=== PATIENT | female | born 1985 | race Caucasian/White ===

== ENCOUNTER 2019-02-04 08:55 | Emergency (ER) | payer SELFPAY ==
[~2019-02-04] VITALS: Ht 172.7 cm; Wt 68.0 kg
[2019-02-04 09:00] VITALS: BP 125/67
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
--- NOTE | 2019-02-04 09:57 | RAD ---
ANKLE LEFT 3V History: Injury to Achilles. Pain. Swelling. Technique: 3 views of the ankle. Comparison: None. Findings: Normal alignment. Symmetric ankle mortise. No fracture. Impression: 1. No acute osseous abnormality. Electronically signed by: Vance Sinha DO (02/04/2019 9:54 AM) [facility]
== END 2019-02-04 10:23 | disposition home or self-care (01) ==
LOC: ER 08:55
DX: M79.672 Pain in left foot (principal); V09.9XXA Pedestrian injured in unspecified transport accident, initial encounter; Y93.89 Activity, other specified; Y92.89 Other specified places as the place of occurrence of the external cause; Y99.0 Civilian activity done for income or pay
CPT/HCPCS: 73610; 99284

== ENCOUNTER 2019-04-04 07:47 | Emergency (ER) | payer SELFPAY ==
[~2019-04-04] VITALS: Ht 172.7 cm; Wt 68.0 kg
[2019-04-04 07:50] VITALS: BP 136/75
[2019-04-04] MEDS ORDERED: ALBU2.5V8 IH (08:08)
[2019-04-04] MEDS ORDERED: AZIT250T6 PO (08:08)
[2019-04-04] MEDS ORDERED: PRED20TA PO (08:08)
--- NOTE | 2019-04-04 08:08 | PHYS DOC ---
Past History Past Medical History: Anxiety Past Surgical History: Other Additional Past Surgical Histo: D&C Smoking: Non-smoker Alcohol Use: Occasionally Drug Use: Marijuana Adult General Chief Complaint Chief Complaint: SHORTNESS OF BREATH HPI HPI 33-year-old female presents with one-week history of URI-type symptoms. Reports last night she had sensation she was unable to breathe with some wheezing. Reports nonproductive cough. Reports subjective fever and chills. Reports nasal congestion. Reports positive sick contacts. Denies . Review of Systems Review of Systems Constitutional: Reports subjective fever and chills Eyes: Denies redness or eye pain HENT: Reports nasal congestion and sore throat Respiratory: Reports nonproductive cough and wheezing Cardiovascular: Denies chest pain or palpitations GI: Denies abdominal pain, nausea, or vomiting : Denies dysuria or hematuria Musculoskeletal: Denies back pain or joint pain Integument: Denies rash or skin lesions Neurologic: Denies headache, focal weakness or sensory changes Complete systems were reviewed and found to be within normal limits, except as documented in this note. Allergies Allergies Allergies Coded Allergies Type Severity Reaction Last Updated Verified No Known Drug Allergies 04/04/19 No Physical Exam Physical Exam Constitutional: Well developed, well nourished, ill appearing, non-toxic appearance HENT: Normocephalic, atraumatic, oropharynx moist, pharynx without erythema or tonsillar exudate, nasal congestion noted Eyes: Conjunctiva normal, no discharge Neck: Normal range of motion, no tenderness, supple Cardiovascular: Heart rate normal, regular rhythm Lungs & Thorax: Bilateral breath sounds diminished at bases but otherwise clear to auscultation, no wheezing Skin: Warm, dry, no erythema, no rash Extremities: No tenderness, ROM intact, no edema Neurologic: Alert and oriented X 3, no focal deficits noted Psychologic: Affect normal, judgement normal, mood normal Current Patient Data Vital Signs Vital Signs Date Time Temp Pulse Resp B/P (MAP) Pulse Ox O2 Delivery O2 Flow Rate FiO2 04/04/19 07:47 98.6 105 22 136/75 (95) 98 Room Air EKG EKG [] Radiology/Procedures Radiology/Procedures PROCEDURE: CHEST PA & LATERAL Chest radiograph 04/04/2019 8:02 AM INDICATION: Cough COMPARISON: None available TECHNIQUE: Frontal and lateral views of the chest are provided. FINDINGS: The cardiomediastinal silhouette is within normal limits. There are no pleural effusions. There is no pulmonary vascular congestion. There is no pneumothorax. The lungs are clear. No significant osseous abnormality is identified. IMPRESSION: No acute cardiopulmonary process. Electronically signed by: Clau Apple MD (04/04/2019 8:35 AM) [facility] Course & Med Decision Making Course & Med Decision Making Pertinent Imaging studies reviewed. (See chart for details) Patient presents with history of present illness and physical exam consistent for acute bronchitis. Symptomatic treatment provided with oral steroid. Chest x- ray without acute process. Patient stable for discharge with outpatient follow- up with PCP. Discussed findings and plan with patient and friend, who acknowledge understanding and agreement. Dragon Disclaimer Dragon Disclaimer This electronic medical record was generated, in whole or in part, using a voice recognition dictation system. Departure Departure: Impression: Primary Impression: Acute bronchitis Disposition: HOME, SELF-CARE Condition: STABLE Referrals: PCP,NO (PCP) Patient Instructions: Acute Bronchitis, [id number] Additional Instructions: Hold antibiotics for 48 hours. If symptoms worsen or for fever > 100.3 F after 48 hours then start antibiotics as prescribed. Scripts Azithromycin (AZITHROMYCIN TABLET) 250 Mg Tablet 1 PKG PO UD for bronchitis, #6 TAB Take 2 tablets today and then one tablet every day thereafter for the next 4 days Prov: LEE GHOSH DO 04/04/19 Albuterol Sulfate (PROAIR HFA INHALER) 8.5 Gm Hfa.aer.ad 2 PUFF IH PRN Q4-6HRS PRN for wheezing, #1 INHALER 0 Refills Prov: LEE GHOSH DO 04/04/19 Prednisone (PREDNISONE) 20 Mg Tablet 2 TAB PO DAILY for Bronchitis, #8 TAB Start this prescription tomorrow, Saturday04/05/19 Prov: LEE GHOSH DO 04/04/19 Problem Qualifiers Primary Impression: Acute bronchitis Bronchitis organism: unspecified organism Qualified Codes: J20.9 - Acute bronchitis, unspecified LEE GHOSH DO Apr 04, 2019 08:08
[2019-04-04] MEDS ORDERED: DEXAMETHASONE 4 MG TABLET PO ONE (08:15)
--- NOTE | 2019-04-04 08:38 | RAD ---
Chest radiograph 04/04/2019 8:02 AM INDICATION: Cough COMPARISON: None available TECHNIQUE: Frontal and lateral views of the chest are provided. FINDINGS: The cardiomediastinal silhouette is within normal limits. There are no pleural effusions. There is no pulmonary vascular congestion. There is no pneumothorax. The lungs are clear. No significant osseous abnormality is identified. IMPRESSION: No acute cardiopulmonary process. Electronically signed by: Clau Apple MD (04/04/2019 8:35 AM) [facility]
== END 2019-04-04 08:50 | disposition home or self-care (01) ==
LOC: ER 07:47
DX: J20.9 Acute bronchitis, unspecified (principal); F41.9 Anxiety disorder, unspecified
CPT/HCPCS: 71046; 99284; J8540

== ENCOUNTER → 2019-06-30 | Outpatient (CLI) | payer BC ==
[~2019-06-30] MED LIST: ALBU2.5V8 IH; AZIT250T6 PO; PRED20TA PO
[2019-06-30 14:52] LABS: HEMATOCRIT 22.9 % (36.0-47.0)
[2019-06-30 14:54] LABS: HEMOGLOBIN 6.7 g/dL (12.0-15.5)
[2019-06-30 16:06] VITALS: BP 97/48
[2019-06-30 17:12] VITALS: BP 100/53
--- NOTE | 2019-06-30 17:17 | NUR ---
Blood transfusion started at 1638, Tubing primed with Normal Saline and then primed with blood, tranfusion started at 20ml/hr, patient monitor closely x 15 min. Pt felt light-headed, BP 100/53, Temp-97.3, O2 sat-100%, RR-20, heart rate-77. Tranfusion rate increased to 120 mL/hr. Will continue to monitor and assess as necessary, pt instructed to call for any assistance.
[2019-06-30 18:15] VITALS: BP 103/55
[2019-06-30 19:20] VITALS: BP 108/56
[2019-06-30 20:20] VITALS: BP 103/52
[2019-06-30 20:42] LABS: HEMATOCRIT 24.1 % (36.0-47.0); HEMOGLOBIN 7.3 g/dL (12.0-15.5)
== END | disposition home or self-care (01) ==
LOC: OPINF 14:03
PROVIDERS: ATTEND Nurse Practitioner
DX: D64.9 Anemia, unspecified (principal); R00.2 Palpitations
CPT/HCPCS: 36415; 36430; 82607; 82728; 82746; 83540; 83550; 85014; 85018; 85045; 86850; 86900; 86901; 86920; P9016

== ENCOUNTER → 2019-06-30 | Outpatient (CLI) | payer BC ==
[2019-06-30 09:47] LABS: BASO # 0.1 x10^3/uL (0.0-0.2); BASO % 1 % (0-3); EOS # 0.1 x10^3/uL (0.0-0.7); EOS % 2 % (0-3); HEMATOCRIT 22.2 % (36.0-47.0); LYMPH # 1.3 x10^3/uL (1.0-4.8); LYMPH % 28 % (24-48); MEAN CORPUSCULAR HEMOGLOBIN 19 pg (25-35); MEAN CORPUSCULAR HGB CONC 29 g/dL (31-37); MEAN CORPUSCULAR VOLUME 66 fL (79-100); MONO # 0.3 x10^3/uL (0.0-1.1); MONO % 6 % (0-9); NEUT # 2.9 x10^3uL (1.8-7.7); NEUT % 63 % (31-73); PLATELET COUNT 359 x10^3/uL (140-400); RED BLOOD COUNT 3.35 x10^6/uL (3.50-5.40); RED CELL DISTRIBUTION WIDTH 19.4 % (11.5-14.5); WHITE BLOOD COUNT 4.6 x10^3/uL (4.0-11.0)
[2019-06-30 10:00] LABS: ALBUMIN 3.9 g/dL (3.4-5.0); ALBUMIN/GLOBULIN RATIO 1.1 (1.0-1.7); CALCIUM 8.6 mg/dL (8.5-10.1); CREATININE 0.5 mg/dL (0.6-1.0); POTASSIUM 3.9 mmol/L (3.5-5.1); TOTAL BILIRUBIN 0.1 mg/dL (0.2-1.0); TOTAL PROTEIN 7.6 g/dL (6.4-8.2)
[2019-06-30 11:08] LABS: HEMOGLOBIN 6.4 g/dL (12.0-15.5)
[2019-06-30 13:49] LABS: HYPOCHROMIA MOD; PLT ESTIMATE ADEQUATE (ADEQUATE)
[2019-06-30 13:50] LABS: MICROCYTOSIS PRESENT
[2019-06-30 13:51] LABS: ANISOCYTOSIS PRESENT; OVALOCYTES FEW
[2019-06-30 13:52] LABS: TARGET CELLS FEW; TEAR DROP CELLS FEW
== END | disposition home or self-care (01) ==
LOC: LAB 08:37
PROVIDERS: ATTEND Internal Medicine Cardiovascular Disease
DX: R00.2 Palpitations (principal); D64.9 Anemia, unspecified
CPT/HCPCS: 36415; 80053; 83735; 84443; 85025

== ENCOUNTER → 2019-07-07 | Outpatient (CLI) | payer BC ==
[~2019-07-07] MED LIST changes: +FERRIC CARBOXYMALTOSE 750 MG in IV NORMAL SALINE 250ML 250 ML IV ONE
[2019-07-07 09:34] VITALS: BP 109/65
--- NOTE | 2019-07-07 10:34 | NUR ---
Patient arrived on unit for outpatient infusion of Injectefer. Vitals were assessed and stable upon assessment. IV 22g RAC put in upon arrival. IV Injectefer was administered per order. IV d/c upon completion of IV injectefer. Patient left unit independently after IV Injectefer completed.
== END | disposition home or self-care (01) ==
LOC: OPINF 09:18
PROVIDERS: ATTEND Nurse Practitioner
DX: D50.9 Iron deficiency anemia, unspecified (principal); R00.2 Palpitations
CPT/HCPCS: 36592; 96365; J1439; J7050

== ENCOUNTER → 2019-07-24 | Outpatient (CLI) | payer BC ==
[2019-07-24 09:22] VITALS: BP 106/61
--- NOTE | 2019-07-24 10:11 | NUR ---
Pt ambulated independently to room 125. Peripheral Iv started in R AC flushed. IV infusion started at 530 ml/hr. Pt offered extra pillow and warm blanket. Vital Signs stable upon arrival.
--- NOTE | 2019-07-24 10:35 | NUR ---
Pt ambulated off unit independently. peripheral Iv disconnected and discontinued.
== END | disposition home or self-care (01) ==
LOC: OPINF 09:09
PROVIDERS: ATTEND Nurse Practitioner
DX: D50.9 Iron deficiency anemia, unspecified (principal)
CPT/HCPCS: 96365; J1439; J7050

== ENCOUNTER 2019-11-18 14:01 | Emergency (ER) | payer BC ==
[~2019-11-18] VITALS: Ht 172.7 cm; Wt 69.0 kg
[~2019-11-18 14:01] MED LIST changes: -FERRIC CARBOXYMALTOSE 750 MG in IV NORMAL SALINE 250ML 250 ML IV ONE
[2019-11-18] MEDS ORDERED: IV NORMAL SALINE 1,000ML 1,000 ML IV ONE (14:30)
[2019-11-18] MEDS ORDERED: ASPIRIN 325 MG TABLET ONE (14:51)
[2019-11-18] MEDS ORDERED: ASPIRIN 325 MG TABLET PO ONE (15:00)
[2019-11-18 15:03] LABS: BASO # 0.1 x10^3/uL (0.0-0.2); BASO % 1 % (0-3); EOS # 0.1 x10^3/uL (0.0-0.7); EOS % 2 % (0-3); HEMATOCRIT 39.9 % (36.0-47.0); HEMOGLOBIN 13.1 g/dL (12.0-15.5); LYMPH # 1.8 x10^3/uL (1.0-4.8); LYMPH % 29 % (24-48); MEAN CORPUSCULAR HEMOGLOBIN 30 pg (25-35); MEAN CORPUSCULAR HGB CONC 33 g/dL (31-37); MEAN CORPUSCULAR VOLUME 90 fL (79-100); MONO # 0.3 x10^3/uL (0.0-1.1); MONO % 6 % (0-9); NEUT # 3.7 x10^3uL (1.8-7.7); NEUT % 62 % (31-73); PLATELET COUNT 258 x10^3/uL (140-400); RED BLOOD COUNT 4.42 x10^6/uL (3.50-5.40); RED CELL DISTRIBUTION WIDTH 13.2 % (11.5-14.5)
[2019-11-18 15:17] LABS: ANION GAP 7 (6-14); BLOOD UREA NITROGEN 15 mg/dL (7-20); BUN/CREATININE RATIO 17 (6-20); CALCIUM 8.7 mg/dL (8.5-10.1); CARBON DIOXIDE 27 mmol/L (21-32); CHLORIDE 107 mmol/L (98-107); CREATININE 0.9 mg/dL (0.6-1.0); GFR 72.6; GLUCOSE 105 mg/dL (70-99); POTASSIUM 3.7 mmol/L (3.5-5.1); SODIUM 141 mmol/L (136-145)
--- NOTE | 2019-11-18 15:21 | PHYS DOC ---
Past History Past Medical History: Other Additional Past Medical Histor: CARDIOMYPATHY Past Surgical History: No Surgical History Additional Past Surgical Histo: D&C Smoking: Non-smoker Alcohol Use: None Drug Use: Marijuana General Adult EDM: Chief Complaint: CHEST PAIN HPI: HPI: Patient is a [age] year old [sex] who presents with [] Review of Systems: Review of Systems: Constitutional: Denies fever or chills Eyes: Denies redness or eye pain HENT: Denies nasal congestion or sore throat Respiratory: Denies cough or shortness of breath Cardiovascular: Denies chest pain or palpitations GI: Denies abdominal pain, nausea, or vomiting : Denies dysuria or hematuria Musculoskeletal: Denies back pain or joint pain Integument: Denies rash or skin lesions Neurologic: Denies headache, focal weakness or sensory changes Complete systems were reviewed and found to be within normal limits, except as documented in this note. Heart Score: HEART Score for Chest Pain: HEART Score for Chest Pain Response (Comments) Value History Slighlty/Non-Suspicious 0 ECG Normal 0 Age < 45 0 Risk Factors 1 or 2 Risk Factors 1 Troponin < Normal Limit 0 Total 1 Risk Factors: Risk Factors: DM, Current or recent (<one month) smoker, HTN, HLP, family history of CAD, obesity. Risk Scores: Score 0 - 3: 2.5% MACE over next 6 weeks - Discharge Home Score 4 - 6: 20.3% MACE over next 6 weeks - Admit for Clinical Observation Score 7 - 10: 72.7% MACE over next 6 weeks - Early Invasive Strategies Current Medications: Current Meds: Current Medications Medications (Trade) Dose Ordered Sig/[facility] Start Time Stop Time Status Last Admin Dose Admin Aspirin (Garret Aspirin) 325 mg STK-MED ONCE 11/18/19 14:51 11/18/19 14:51 DC Sodium Chloride 1,000 ml @ 1,000 mls/hr 1X ONCE 11/18/19 14:30 11/18/19 15:29 11/18/19 14:53 1,000 MLS/HR Allergies: Allergies: Allergies Coded Allergies Type Severity Reaction Last Updated Verified No Known Drug Allergies 04/04/19 No Physical Exam: PE: Constitutional: Well developed, well nourished, no acute distress, non-toxic appearance HENT: Normocephalic, atraumatic, oropharynx moist Eyes: PERRL, EOMI, conjunctiva normal, no discharge Neck: Normal range of motion, no tenderness, supple Cardiovascular: Heart rate normal, regular rhythm Lungs & Thorax: Bilateral breath sounds clear to auscultation, no wheezing Abdomen: Soft, no tenderness Skin: Warm, dry, no erythema, no rash Back: No tenderness, no CVA tenderness Extremities: No tenderness, ROM intact, no edema Neurologic: Alert and oriented X 3, normal motor function, normal sensory function, no focal deficits noted Psychologic: Affect normal, judgment normal Current Patient Data: Labs: Laboratory Tests Test 11/18/19 14:44 11/18/19 15:06 White Blood Count 6.0 x10^3/uL (4.0-11.0) Red Blood Count 4.42 x10^6/uL (3.50-5.40) Hemoglobin 13.1 g/dL (12.0-15.5) Hematocrit 39.9 % (36.0-47.0) Mean Corpuscular Volume 90 fL (79-100) Mean Corpuscular Hemoglobin 30 pg (25-35) Mean Corpuscular Hemoglobin Concent 33 g/dL (31-37) Red Cell Distribution Width 13.2 % (11.5-14.5) Platelet Count 258 x10^3/uL (140-400) Neutrophils (%) (Auto) 62 % (31-73) Lymphocytes (%) (Auto) 29 % (24-48) Monocytes (%) (Auto) 6 % (0-9) Eosinophils (%) (Auto) 2 % (0-3) Basophils (%) (Auto) 1 % (0-3) Neutrophils # (Auto) 3.7 x10^3uL (1.8-7.7) Lymphocytes # (Auto) 1.8 x10^3/uL (1.0-4.8) Monocytes # (Auto) 0.3 x10^3/uL (0.0-1.1) Eosinophils # (Auto) 0.1 x10^3/uL (0.0-0.7) Basophils # (Auto) 0.1 x10^3/uL (0.0-0.2) Sodium Level 141 mmol/L (136-145) Potassium Level 3.7 mmol/L (3.5-5.1) Chloride Level 107 mmol/L (98-107) Carbon Dioxide Level 27 mmol/L (21-32) Anion Gap 7 (6-14) Blood Urea Nitrogen 15 mg/dL (7-20) Creatinine 0.9 mg/dL (0.6-1.0) Estimated GFR (Cockcroft-Gault) 72.6 BUN/Creatinine Ratio 17 (6-20) Glucose Level 105 mg/dL (70-99) H Calcium Level 8.7 mg/dL (8.5-10.1) Magnesium Level Pending Total Bilirubin Pending Aspartate Amino Transferase (AST) Pending Alanine Aminotransferase (ALT) Pending Alkaline Phosphatase Pending Creatine Kinase Pending Creatine Kinase MB (Mass) Pending Creatine Kinase MB Relative Index Pending MW-Uvc-B-Type Natriuretic Peptide Pending Total Protein Pending Albumin Pending Albumin/Globulin Ratio Pending Lipase Pending POC Urine HCG, Qualitative hcg negative (Negative) Vital Signs: Vital Signs Date Time Temp Pulse Resp B/P (MAP) Pulse Ox O2 Delivery O2 Flow Rate FiO2 11/18/19 14:40 98.9 78 18 119/66 (83) 98 Room Air EKG: EKG: @1408 NSR at 70bpm, NO ST elevation, QRS 78ms, QT/QTc 380/413ms, nonspecific t wave inversion aVL, Q wave in II,III, aVF Radiology/Procedures: Radiology/Procedures: PROCEDURE: CHEST PA & LATERAL EXAM: PA and Lateral Views of the Chest DATE: 11/18/2019 4:04 PM INDICATION: Chest pain COMPARISON: 04/04/2019 FINDINGS: The heart is not enlarged. Mediastinal and hilar contours are normal. No focal parenchymal airspace opacity. No pleural effusion or pneumothorax. IMPRESSION: 1. No radiographic evidence for acute cardiopulmonary process. Electronically signed by: Sarabjit Cabrera MD (11/18/2019 4:16 PM) [facility] Course & Med Decision Making: Course & Med Decision Making Pertinent Labs and Imaging studies reviewed. (See chart for details) Patient stable for discharge with outpatient follow-up with PCP. Discussed f indings and plan with patient, who acknowledges understanding and agreement. Gladis Disclaimer: Gladis Disclaimer: This electronic medical record was generated, in whole or in part, using a voice recognition dictation system. Departure Departure: Impression: Primary Impression: Chest pain Qualified Codes: R07.9 - Chest pain, unspecified Disposition: HOME/RESIDENCE PRIOR TO ADM Condition: STABLE Referrals: PCP,BARRY (PCP) TAYLER PAYAN MD Patient Instructions: Chest Pain (Nonspecific), [id number] Justification of Admission: Justification of Admission: Justification of Admission Dx: N/A LEE GHOSH DO Nov 18, 2019 15:21
[2019-11-18 15:23] LABS: BARBITURATES NEG (NEG); BENZODIAZEPINES NEG (NEG); CANNABINOIDS POS (NEG); COCAINE NEG (NEG); METHADONE NEG (NEG); OPIATES NEG (NEG); PHENCYCLIDINE NEG (NEG)
[2019-11-18 15:28] LABS: AMPHETAMINE/METHAMPHETAMINE NEG (NEG)
[2019-11-18 15:32] LABS: ALBUMIN 3.7 g/dL (3.4-5.0); ALK PHOS 45 U/L (46-116); ALT (SGPT) 17 U/L (14-59); AST (SGOT) 10 U/L (15-37); LIPASE 120 U/L (73-393); MAGNESIUM 2.3 mg/dL (1.8-2.4); TOTAL BILIRUBIN 0.3 mg/dL (0.2-1.0); TOTAL PROTEIN 7.3 g/dL (6.4-8.2)
[2019-11-18 15:40] LABS: BACTERIA,URINE 0 /HPF (0-FEW); BILIRUBIN,URINE NEG (NEG); CLARITY,URINE CLEAR; COLOR,URINE YELLOW; GLUCOSE,URINE NEG (NEG); NITRITE,URINE NEG (NEG); SQUAMOUS EPITHELIAL CELL,UR FEW /LPF; UROBILINOGEN,URINE 0.2 mg/dL (0.2 mg/dL)
--- NOTE | 2019-11-18 16:19 | RAD ---
EXAM: PA and Lateral Views of the Chest DATE: 11/18/2019 4:04 PM INDICATION: Chest pain COMPARISON: 04/04/2019 FINDINGS: The heart is not enlarged. Mediastinal and hilar contours are normal. No focal parenchymal airspace opacity. No pleural effusion or pneumothorax. IMPRESSION: 1. No radiographic evidence for acute cardiopulmonary process. Electronically signed by: Sarabjit Cabrera MD (11/18/2019 4:16 PM) [facility]
[2019-11-18 16:30] VITALS: BP 117/93
--- NOTE | 2019-11-19 13:48 | EKG ---
[address] [address] Test Date: 2019-11-18 Test Time: 14:08:05 Pat Name: WILLIE PERSAUD Department: Room: Gender: F Pen Maker: : 1985 Requested By: LEE GHOSH Order Number: [id number] Reading MD: Measurements Intervals [place]rigan Rate: 70 P: 47 DE: 134 QRS: 58 QRSD: 78 T: 65 QT: 380 QTc: 413 Interpretive Statements SINUS RHYTHM LEFT ATRIAL ABNORMALITY ABNORMAL ECG RI6.02 No previous ECG available for comparison
== END 2019-11-18 16:25 | disposition home or self-care (01) ==
LOC: ER 14:01
DX: R07.2 Precordial pain (principal); R06.02 Shortness of breath; R42 Dizziness and giddiness
CPT/HCPCS: 36415; 71046; 80053; 80307; 81001; 81025; 82553; 83690; 83735; 83880; 84484; 85025; 85379; 85610; 85730; 93005; 96360; 99285; J7030

== ENCOUNTER → 2020-01-22 | Outpatient (CLI) | payer BC ==
--- NOTE | 2020-01-22 11:21 | RAD ---
EXAM: Abdomen and pelvis CT without intravenous contrast. HISTORY: Left lower quadrant pain. Dysmenorrhea. TECHNIQUE: Computed tomographic images of the abdomen and pelvis were obtained without contrast. Multiplanar reformatting was performed. *One or more of the following individualized dose reduction techniques were utilized for this examination: 1. Automated exposure control. 2. Adjustment of the mA and/or kV according to patient size. 3. Use of iterative reconstruction technique. COMPARISON: None. FINDINGS: Evaluation of the lower thorax is unremarkable. No hepatic lesion is seen. There is slight increased density within the dependent portion of the gallbladder which may be due to sludge. The pancreas, spleen, adrenal glands and stomach are unremarkable. There is a 5 mm exophytic lesion along the lateral mid zone of the right kidney. There is a punctate density within the inferior right kidney on coronal images which may be artifactual or due to a tiny stone. There is no hydronephrosis. There is no appendicitis. There is no bowel obstruction. There is a short segment of wall thickening with surrounding stranding and trace fluid involving the distal descending colon. There is a diverticulum in this location, favoring acute diverticulitis. No drainable fluid collection or free air is seen. The urinary bladder and uterus are unremarkable. There is an enlarged right ovary containing multiple follicles. There is a small amount of pelvic free fluid. There is no lymphadenopathy. There is no aortic aneurysm. There is no suspicious osseous lesion. There is a transitional lumbosacral segment, a normal variant. IMPRESSION: 1. Segmental wall thickening with surrounding stranding and trace fluid involving the distal ascending colon to the level of a diverticulum, likely due to acute diverticulitis. 2. Tiny exophytic lesion along the lateral mid zone of the right kidney, too small to characterize and likely cystic in etiology. There is also a punctate density within the inferior right kidney which may be due to a tiny nonobstructing stone. 3. Enlarged right ovary containing multiple follicles. Electronically signed by: Sushila Boo MD (01/22/2020 11:18 AM) [facility]
[2020-01-22 11:31] LABS: BASO % 0 % (0-3); EOS # 0.1 x10^3/uL (0.0-0.7); EOS % 1 % (0-3); HEMATOCRIT 39.6 % (36.0-47.0); HEMOGLOBIN 13.2 g/dL (12.0-15.5); LYMPH # 1.2 x10^3/uL (1.0-4.8); LYMPH % 22 % (24-48); MEAN CORPUSCULAR HEMOGLOBIN 31 pg (25-35); MEAN CORPUSCULAR HGB CONC 33 g/dL (31-37); MEAN CORPUSCULAR VOLUME 92 fL (79-100); MONO # 0.2 x10^3/uL (0.0-1.1); MONO % 5 % (0-9); NEUT # 3.7 x10^3uL (1.8-7.7); NEUT % 72 % (31-73); PLATELET COUNT 247 x10^3/uL (140-400); RED BLOOD COUNT 4.31 x10^6/uL (3.50-5.40); RED CELL DISTRIBUTION WIDTH 12.5 % (11.5-14.5); WHITE BLOOD COUNT 5.2 x10^3/uL (4.0-11.0)
== END ==
LOC: CT 09:49
PROVIDERS: ATTEND Family Medicine
DX: N28.89 Other specified disorders of kidney and ureter (principal); N83.8 Other noninflammatory disorders of ovary, fallopian tube and broad ligament; K57.30 Diverticulosis of large intestine without perforation or abscess without bleeding; D50.9 Iron deficiency anemia, unspecified
CPT/HCPCS: 36415; 74176; 83540; 85025

== ENCOUNTER 2021-01-09 08:34 | Emergency (ER) | payer BC ==
[~2021-01-09] VITALS: Ht 172.7 cm; Wt 69.0 kg
[2021-01-09 09:26] LABS: BASO % 1 % (0-3); EOS # 0.1 x10^3/uL (0.0-0.7); EOS % 2 % (0-3); HEMATOCRIT 34.3 % (36.0-47.0); HEMOGLOBIN 11.5 g/dL (12.0-15.5); LYMPH # 1.4 x10^3/uL (1.0-4.8); LYMPH % 25 % (24-48); MEAN CORPUSCULAR HEMOGLOBIN 31 pg (25-35); MEAN CORPUSCULAR HGB CONC 34 g/dL (31-37); MEAN CORPUSCULAR VOLUME 92 fL (79-100); MONO # 0.3 x10^3/uL (0.0-1.1); MONO % 5 % (0-9); NEUT # 3.8 x10^3uL (1.8-7.7); NEUT % 68 % (31-73); PLATELET COUNT 284 x10^3/uL (140-400); RED BLOOD COUNT 3.75 x10^6/uL (3.50-5.40); RED CELL DISTRIBUTION WIDTH 12.5 % (11.5-14.5); WHITE BLOOD COUNT 5.7 x10^3/uL (4.0-11.0)
[2021-01-09 09:32] LABS: CALCIUM 8.4 mg/dL (8.5-10.1); CREATININE 0.6 mg/dL (0.6-1.0); GFR 115.1; POTASSIUM 3.8 mmol/L (3.5-5.1)
--- NOTE | 2021-01-09 09:36 | PHYS DOC ---
Past History Past Surgical History: No Surgical History Additional Past Surgical Histo: D&C Smoking: Non-smoker Alcohol Use: None Drug Use: Marijuana Adult General Chief Complaint Chief Complaint: VAGINAL BLEEDING HPI HPI Patient is a 35-year-old female presenting for vaginal bleeding. This is an acute on chronic problem. States this started approximately 2 years ago and she has had abnormal menstrual periods ever since. States "I was bleeding all through my and afterwards ". She has seen numerous [facility]'s for evaluation that have included CT imaging and ultrasound without any significant findings. States her last normal period was approximately 1 year ago, admits approximately 2 weeks ago starting her period that has been constant ever since. She has had alternating bright red and brownish discharge which she states is typical for her unusual periods. Denies any significant pain, reports in last 24 hours having to change her pads more frequently and states that there was an episode yesterday where she had to change her pad out 5 times within 10 minutes due to ongoing bleeding and expression of blood clots. She contacted her most recent CELL LEAD for which she established with who advised her to present to local ER for evaluation given reported blood loss prompting her to come in today. States she is fatigued, has had intermittent episodes of lightheadedness. Does admit to history of anemia, has required blood transfusions in the past with most recent approximately 16 months ago when her hemoglobin was 4. She is on no home medications. Has been worked up in outpatient setting for coagulopathies and had thyroid checked last year by CE[facility]AD, states it was low but not low en ough to require medication use Review of Systems Review of Systems Fourteen body systems of review of systems have been reviewed. See HPI for pertinent positives and negative responses, other menjivar all other systems are negative, non-pertinent or non-contributory Allergies Allergies Allergies Coded Allergies Type Severity Reaction Last Updated Verified No Known Drug Allergies 04/04/19 No Physical Exam Physical Exam Constitutional: Well developed, well nourished, no acute distress, non-toxic appearance. HENT: Normocephalic, atraumatic, bilateral external ears normal, oropharynx moist, no oral exudates, nose normal. Eyes: PERRLA, EOMI, conjunctiva normal, no discharge. Neck: Normal range of motion, no tenderness, supple, no stridor. Cardiovascular: Heart rate regular, sinus rhythm, no murmurs rubs or gallops Lungs & Thorax: Bilateral breath sounds clear to auscultation Abdomen: Bowel sounds normal, soft, no tenderness, no masses, no pulsatile masses. Nonsurgical abdomen, no peritoneal signs Pelvic: External genitalia unremarkable. Vaginal canal unremarkable without any obvious trauma or concerning findings. Cervix unremarkable. Blood present at distal portion of vaginal vault with x1 small clot present without any ongoing/active bleeding evident Skin: Warm, dry, no erythema, no rash. Back: No tenderness, no CVA tenderness. Extremities: No tenderness, no cyanosis, no clubbing, ROM intact, no edema. Neurologic: Alert and oriented X 3, grossly normal motor & sensory function, no focal deficits noted. Psychologic: Affect normal, judgement normal, mood normal. Current Patient Data Vital Signs Vital Signs Date Time Temp Pulse Resp B/P (MAP) Pulse Ox O2 Delivery O2 Flow Rate FiO2 01/09/21 08:50 98.0 111 18 158/91 96 Room Air Lab Results Laboratory Tests Test 01/09/21 08:55 01/09/21 09:35 White Blood Count 5.7 x10^3/uL Red Blood Count 3.75 x10^6/uL Hemoglobin 11.5 g/dL Hematocrit 34.3 % Mean Corpuscular Volume 92 fL Mean Corpuscular Hemoglobin 31 pg Mean Corpuscular Hemoglobin Concent 34 g/dL Red Cell Distribution Width 12.5 % Platelet Count 284 x10^3/uL Neutrophils (%) (Auto) 68 % Lymphocytes (%) (Auto) 25 % Monocytes (%) (Auto) 5 % Eosinophils (%) (Auto) 2 % Basophils (%) (Auto) 1 % Neutrophils # (Auto) 3.8 x10^3uL Lymphocytes # (Auto) 1.4 x10^3/uL Monocytes # (Auto) 0.3 x10^3/uL Eosinophils # (Auto) 0.1 x10^3/uL Basophils # (Auto) 0.0 x10^3/uL Sodium Level 142 mmol/L Potassium Level 3.8 mmol/L Chloride Level 105 mmol/L Carbon Dioxide Level 27 mmol/L Anion Gap 10 Blood Urea Nitrogen 12 mg/dL Creatinine 0.6 mg/dL Estimated GFR (Cockcroft-Gault) 115.1 Glucose Level 97 mg/dL Calcium Level 8.4 mg/dL Urine Collection Type Unknown Urine Color Red Urine Clarity Bloody Urine pH Urine Specific [place] Urine Protein Urine Glucose (UA) mg/dL Urine Ketones (Stick) mg/dL Urine Blood Urine Nitrite Urine Bilirubin Urine Urobilinogen Dipstick mg/dL Urine Leukocyte Esterase Urine RBC Tntc /HPF Urine WBC 5-10 /HPF Urine Squamous Epithelial Cells Few /LPF Urine Bacteria 0 /HPF Urine Test Negative EKG EKG [] Radiology/Procedures Radiology/Procedures INDICATION: Reason: vaginal bleeding, not / Spl. Instructions: / History: COMPARISON: CT December 2019. TECHNIQUE: Grayscale and color ultrasound images uterus and adnexa. Transabdominal and transvaginal images obtained. Transvaginal images were needed to better visualize structures that were limited on transabdominal imaging. FINDINGS: Uterus: 93 x 63 x 48 mm. 13 mm endometrial stripe. There is complex fluid seen in the lower uterine segment to cervical region. Right Ovary: 54 x 52 x 37 mm. Left Ovary: 30 x 21 x 12 mm. Vascular flow identified to bilateral ovaries. Complex cystic appearance of the right ovary with some of the cystic regions measuring up to about 22 mm. IMPRESSION: * Heterogenous material is seen within the lower uterine segment to cervical region with some fluid seen. This could be secondary to blood products within the area but follow-up could be obtained to ensure that this appropriately decreases to exclude any persistent endometrial lesion or hyperplasia. * Multiple cystic lesions at the right ovary with some complex component. Could be from causes such as hemorrhagic cyst and multiple ovarian follicles but follow-up could be obtained to ensure this appropriately decreases to exclude other complex cystic lesions of the right ovary. The right ovary is enlarged. Electronically signed by: Rafal Freedman MD (01/09/2021 11:11 AM) DESKTOP- [id number] Heart Score C/O Chest Pain: No HEART Score for Chest Pain: HEART Score for Chest Pain Response (Comments) Value History Slighlty/Non-Suspicious 0 Age < 45 0 Troponin < Normal Limit 0 Total 0 Risk Factors: Risk Factors: DM, Current or recent (<one month) smoker, HTN, HLP, family history of CAD, obesity. Risk Scores: Risk Factors: DM, Current or recent (<one month) smoker, HTN, HLP, family history of CAD, obesity. Course & Med Decision Making Course & Med Decision Making Initially tachycardic but repeat vitals after patient was situated in bed unremarkable. HPI concerning for acute on chronic vaginal bleeding. Physical exam and comprehensive ER work-up nonconcerning for any emergent or surgical issues, no ongoing/active bleeding Given unique case, [facility] at [facility] was contacted and case reviewed. They have seen patient in the past. They recommended continued supportive care and close outpatient follow-up for repeat evaluation I disclosed all work-up findings performed in ER with patient. I disclosed phone call with CELL LEAD and proposed plan of care at length with patient with good understanding. All questions and concerns addressed. Resources and information for CELL LEAD practice provided to patient at ER departure with strict return precautions. Dragon Disclaimer Dragon Disclaimer This electronic medical record was generated, in whole or in part, using a voice recognition dictation system. Departure Departure: Impression: Primary Impression: Vaginal bleeding Disposition: HOME / SELF CARE / HOMELESS Condition: STABLE Referrals: ABISAI FELICIANO MD (PCP) FERMÍN SINHA DO Additional Instructions: You were seen for vaginal bleeding. While the etiology of your bleeding is not precisely known at this time, further studies are needed to find the answer to this issue. The [facility]LL [facility] doctors want to see you in the clinic. Please contact Dr. Sinha, the CELL LEAD who I contacted regarding your vaginal bleeding today to be scheduled for close outpatient follow-up. You may be starting your period. You need to return to the ED immediately if you develop worsening pain, heavy vaginal bleeding, chest pain, shortness of breath, excessive fatigue, lightheadedness, or any other new or concerning symptoms. BRET MASON DO Jan 09, 2021 09:36
[2021-01-09 09:55] LABS: U PREG PATIENT NEGATIVE (NEG)
[2021-01-09 10:08] LABS: CLARITY,URINE BLOODY; COLOR,URINE RED
[2021-01-09 10:09] LABS: BACTERIA,URINE 0 /HPF (0-FEW); RBC,URINE TNTC /HPF (0-2); SQUAMOUS EPITHELIAL CELL,UR FEW /LPF
--- NOTE | 2021-01-09 11:13 | RAD ---
INDICATION: Reason: vaginal bleeding, not / Spl. Instructions: / History: COMPARISON: CT December 2019. TECHNIQUE: Grayscale and color ultrasound images uterus and adnexa. Transabdominal and transvaginal images obtained. Transvaginal images were needed to better visualize structures that were limited on transabdominal imaging. FINDINGS: Uterus: 93 x 63 x 48 mm. 13 mm endometrial stripe. There is complex fluid seen in the lower uterine segment to cervical region. Right Ovary: 54 x 52 x 37 mm. Left Ovary: 30 x 21 x 12 mm. Vascular flow identified to bilateral ovaries. Complex cystic appearance of the right ovary with some of the cystic regions measuring up to about 22 mm. IMPRESSION: * Heterogenous material is seen within the lower uterine segment to cervical region with some fluid seen. This could be secondary to blood products within the area but follow-up could be obtained to e nsure that this appropriately decreases to exclude any persistent endometrial lesion or hyperplasia. * Multiple cystic lesions at the right ovary with some complex component. Could be from causes such as hemorrhagic cyst and multiple ovarian follicles but follow-up could be obtained to ensure this senthil ropriately decreases to exclude other complex cystic lesions of the right ovary. The right ovary is e nlarged. Electronically signed by: Rafal Freedman MD (01/09/2021 11:11 AM) DESKTOP-[id number]
[2021-01-09 12:03] VITALS: BP 118/65
== END 2021-01-09 12:06 | disposition home or self-care (01) ==
LOC: ER 08:34
DX: N93.8 Other specified abnormal uterine and vaginal bleeding (principal); F12.10 Cannabis abuse, uncomplicated; Z32.02 Encounter for pregnancy test, result negative
CPT/HCPCS: 36415; 76856; 80048; 81001; 81025; 84443; 85025; 86850; 86900; 86901; 87086; 99284-25